=== PATIENT | female | born 1980 | race African-American/Black ===

== ENCOUNTER 2018-04-03 06:15 | Day surgery (SDC) | payer OTHER ==
[2018-04-03] MEDS ORDERED: Ringers Lactate 1,000 ML IV ONE (07:09)
[2018-04-03 07:10] LABS: Specific Gravity >= 1.030 (1.005-1.030)
[2018-04-03] MEDS ORDERED: PROPOFOL 200 MG/20 ML VIAL IV ONE (07:34)
[2018-04-03] MEDS ORDERED: MIDAZOLAM HCL 2 MG/2 ML INJ ONE (07:34)
[2018-04-03] MEDS ORDERED: LIDOCAINE 1% MPF 5 ML VIAL ONE (07:34)
--- NOTE | 2018-04-03 07:55 | ENDO RPT ---
[address], [address] EGD PROCEDURE REPORT EXAM DATE: 04/03/2018 PATIENT NAME: Caryn Garza MR#: [id number] BIRTHDATE: 1980 ATTENDING: Shawn Kruse Dr STATUS: outpatient LEAD MECHANICAL ENGINEER: Jany Navas RN and Eloian Mcintosh INDICATIONS: The patient is a 38 yr old Female here for an EGD due to mid epigastric abdominal pain, left upper quadrant abdominal pain, nausea, belching, heartburn, history of peptic ulcer disease, and iron deficiency anemia PROCEDURE PERFORMED: EGD with biopsy MEDICATIONS: Per Anesthesia. TOPICAL ANESTHETIC: none CONSENT: The patient understands the risks and benefits of the procedure and understands that these risks include, but are not limited to: sedation, allergic reaction, infection, perforation and/or bleeding. Alternative means of evaluation and treatment include, among others: physical exam, x-rays, and/or surgical intervention. The patient elects to proceed with this endoscopic procedure. DESCRIPTION OF PROCEDURE: During intra-op preparation period all mechanical medical equipment was checked for proper function. Hand hygiene and appropriate measures for infection prevention was taken. Procedure, possible complications, and alternatives including but not limited to the possibility of bleeding, perforation, tear, infection, sepsis, need for surgery, need for blood transfusion, and anesthesia related complications were explained to the patient. After the risks, benefits and alternatives of the procedure were thoroughly explained, Informed consent was verified, confirmed and timeout was successfully executed by the treatment team. The patient was placed in the left lateral position. The patient was anesthetized with topical anesthesia. Through the anesthetized oropharyngeal area, the scope was passed without any difficulty. The Pentax EG-2990i ([id number]) endoscope was introduced through the mouth and advanced to the third portion of the duodenum. Retroflexed views revealed a moderate sized hiatal hernia. The gastroscope was then slowly withdrawn and removed. A Schatzki's ring was found in the lower esophagus. A moderate sized hiatal hernia was found Mild gastritis was found in the antrum. Multiple biopsies were obtained and sent to pathology. Multiple erosions were found in the antrum. ADVERSE EVENTS: There were no complications. IMPRESSIONS: 1. A Schatzki's ring in the lower esophagus (no history of dysphagia) 2. A moderate sized hiatal hernia 3. Mild gastritis in the antrum, s/p biopsies 4. Multiple ( 7) erosions in the antrum RECOMMENDATIONS: 1. await biopsy results 2. acid suppression therapy REPEAT EXAM: Shawn Kruse Dr eSigned: Shawn Kruse Dr 04/03/2018 7:55 AM cc: Charbel Keating CPT CODES: ICD9 CODES: PATIENT NAME: Caryn Garza MR#: [id number]
--- NOTE | 2018-04-03 08:10 | ENDO RPT ---
[address], [address] EGD PROCEDURE REPORT EXAM DATE: 04/03/2018 PATIENT NAME: Caryn Garza MR#: [id number] BIRTHDATE: 1980 ATTENDING: Shawn Kruse Dr STATUS: outpatient BARGE LOADER: Jany Navas RN and Eloina Mcintosh INDICATIONS: The patient is a 38 yr old Female here for an EGD due to mid epigastric abdominal pain, left upper quadrant abdominal pain, nausea, belching, heartburn, history of peptic ulcer disease, and iron deficiency anemia PROCEDURE PERFORMED: EGD with biopsy MEDICATIONS: Per Anesthesia. TOPICAL ANESTHETIC: none CONSENT: The patient understands the risks and benefits of the procedure and understands that these risks include, but are not limited to: sedation, allergic reaction, infection, perforation and/or bleeding. Alternative means of evaluation and treatment include, among others: physical exam, x-rays, and/or surgical intervention. The patient elects to proceed with this endoscopic procedure. DESCRIPTION OF PROCEDURE: During intra-op preparation period all mechanical medical equipment was checked for proper function. Hand hygiene and appropriate measures for infection prevention was taken. Procedure, possible complications, and alternatives including but not limited to the possibility of bleeding, perforation, tear, infection, sepsis, need for surgery, need for blood transfusion, and anesthesia related complications were explained to the patient. After the risks, benefits and alternatives of the procedure were thoroughly explained, Informed consent was verified, confirmed and timeout was successfully executed by the treatment team. The patient was placed in the left lateral position. The patient was anesthetized with topical anesthesia. Through the anesthetized oropharyngeal area, the scope was passed without any difficulty. The Pentax EG-2990i ([id number]) endoscope was introduced through the mouth and advanced to the third portion of the duodenum. Retroflexed views revealed a moderate sized hiatal hernia. The gastroscope was then slowly withdrawn and removed. A Schatzki's ring was found in the lower esophagus. A moderate sized hiatal hernia was found Mild gastritis was found in the antrum. Multiple biopsies were obtained and sent to pathology. Multiple erosions were found in the antrum. Small bowel biopsies obtained with history of iron deficiency anemia. ADVERSE EVENTS: There were no complications. IMPRESSIONS: 1. A Schatzki's ring in the lower esophagus (no history of dysphagia) 2. A moderate sized hiatal hernia 3. Mild gastritis in the antrum, s/p biopsies 4. Multiple ( 7) erosions in the antrum 5. Small bowel biopsies obtained with history of iron deficiency anemia RECOMMENDATIONS: 1. await biopsy results 2. acid suppression therapy REPEAT EXAM: Shawn Kruse Dr eSigned: Shawn Kruse Dr 04/03/2018 8:09 AM Revised: 04/03/2018 8:09 AM cc: Charbel Keating CPT CODES: ICD9 CODES: PATIENT NAME: Caryn Garza MR#: [id number]
--- NOTE | 2018-04-03 08:20 | ENDO RPT ---
[address], [address] COLONOSCOPY PROCEDURE REPORT EXAM DATE: 04/03/2018 PATIENT NAME: Caryn Garza MR #: [id number] BIRTHDATE: 1980 ATTENDING: Shawn Kruse Dr STATUS: outpatient BRAID PATTERN SETTER: Eloina Mcintosh and Jany Navas RN INDICATIONS: The patient is a 38 yr old Female here for a colonoscopy due to iron deficiency anemia and RLQ/LLQ abdominal pain PROCEDURE PERFORMED: Colonoscopy MEDICATIONS: Per Anesthesia. ESTIMATED BLOOD LOSS: None CONSENT: The patient understands the risks and benefits of the procedure and understands that these risks include, but are not limited to: sedation, allergic reaction, infection, perforation and/or bleeding. Alternative means of evaluation and treatment include, among others: physical exam, x-rays, and/or surgical intervention. The patient elects to proceed with this endoscopic procedure. DESCRIPTION OF PROCEDURE: During intra-op preparation period all mechanical medical equipment was checked for proper function. Hand hygiene and appropriate measures for infection prevention was taken. Procedure, possible complications, alternatives including, but not limited to possibility of bleeding, perforation, tear, infection, sepsis, need for surgery, need for blood transfusion, were explained to the patient. After the risks, benefits and alternatives of the procedure were thoroughly explained, Informed consent was verified, confirmed and timeout was successfully executed by the treatment team. The patient was placed in the left lateral position. A digital rectal exam was performed and revealed no abnormalities of the rectum. After appropriate level of anesthesia, the scope was passed. The EG-2990i ([id number]) and EC-[id number] ([id number]) endoscope was introduced through the anus and advanced to the terminal ileum which was intubated for a short distance. The quality of the prep was good. The instrument was then slowly withdrawn as the colon was fully examined. Scope withdrawal time was 7 minutes. COLON FINDINGS: Small internal hemorrhoids were found. Retroflexed views revealed small hemorrhoids. The scope was then completely withdrawn from the patient and the procedure terminated. ADVERSE EVENTS: There were no complications. IMPRESSIONS: 1. Small internal hemorrhoids 2. Intubation to terminal ileum RECOMMENDATIONS: fiber rich diet RECALL: Return in 10 year(s) for Colonoscopy. Shawn Kruse Dr eSigned: Shawn Kruse Dr 04/03/2018 8:20 AM cc: Charbel Keating CPT CODES: ICD9 CODES: PATIENT NAME: Jim Garzaoinmelani Saleh MR#: [id number]
[2018-04-03 10:12] LABS: Urine Appearance CLEAR; Urine Bilirubin NEGATIVE (NEG); Urine Blood NEGATIVE (NEG); Urine Color DK YELLOW; Urine Glucose NEGATIVE (NEG); Urine Protein NEGATIVE (NEG); Urine Specific Gravity >=1.030 (1.005-1.030); Urine Urobilinogen 0.2 mg/dL (0.2-1.0)
[2018-04-03 10:13] LABS: Urine Microscopic Reflex NO UMIC
== END 2018-04-03 09:45 | disposition home or self-care (01) ==
LOC: OR 06:15
PROVIDERS: ATTEND Internal Medicine Gastroenterology
PROC: 0DB88ZX Excision of Small Intestine, Via Natural or Artificial Opening Endoscopic, Diagnostic (ICD-10-PCS; 2018-04-03)
PROC: 0DJD8ZZ Inspection of Lower Intestinal Tract, Via Natural or Artificial Opening Endoscopic (ICD-10-PCS; principal; 2018-04-03 07:30)
PROC: 0DB78ZX Excision of Stomach, Pylorus, Via Natural or Artificial Opening Endoscopic, Diagnostic (ICD-10-PCS; 2018-04-03 07:30)
DX: K21.0 Gastro-esophageal reflux disease with esophagitis (principal); K59.00 Constipation, unspecified; E66.9 Obesity, unspecified; Z68.41 Body mass index [BMI] 40.0-44.9, adult; D50.9 Iron deficiency anemia, unspecified; K64.8 Other hemorrhoids; K22.2 Esophageal obstruction; K44.9 Diaphragmatic hernia without obstruction or gangrene
CPT/HCPCS: 81003; 81025; 88305; 88312; J2250

== ENCOUNTER 2018-06-08 05:23 | Emergency (ER) | payer OTHER ==
--- NOTE | 2018-06-08 07:15 | ER ---
Nurse's Notes [facility] Name: Caryn Garza Age: 38 yrs Sex: Female : 1980 Arrival Date: 06/08/2018 Time: 05: Bed 18 Private MD: Charbel Keating Diagnosis: Acute upper respiratory infection, unspecified Presentation: 06/08 05:36 Presenting complaint: Patient states: Pt reports she has been congested and having a ea sore throat since Sunday. Pt reports symptoms have been getting worse since. Reports she has been taking amoxicillin. Transition of care: patient was not received from another setting of care. Onset of symptoms was June 08, 2018. Risk Assessment: Do you want to hurt yourself or someone else? Patient reports no desire to harm self or others. Initial Sepsis Screen: Does the patient meet any 2 criteria? No. Patient's initial sepsis screen is negative. Does the patient have a suspected source of infection? No. Patient's initial sepsis screen is negative. Care prior to arrival: None. 05:36 Method Of Arrival: Ambulatory ea 05:36 Acuity: RITA 4 ea Triage Assessment: 05:43 General: Appears uncomfortable, Behavior is calm, cooperative, appropriate for age. ea Pain: Complains of pain in forehead, right eye, right cheek, nose, left cheek and left eye Pain currently is 8 out of 10 on a pain scale. Quality of pain is described as pressure. EENT: Nares are clear with drainage noted bilaterally pt reports nasal congestion . Neuro: Level of Consciousness is awake, alert, obeys commands, Oriented to person, place, time, situation. Cardiovascular: Heart tones S1 S2 present Patient's skin is warm and dry. Respiratory: Airway is patent Respiratory effort is even, unlabored, Respiratory pattern is regular, symmetrical, Breath sounds with crackles in right posterior middle lobe. Respiratory: Parent/caregiver reports the patient having cough that is productive, hacking. GI: Abdomen is non-distended, Bowel sounds present X 4 quads. Derm: Skin is pink, warm \T\ dry. 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 - Social history:: Smoking status: Patient/guardian denies using tobacco. - Ebola Screening: : No symptoms or risks identified at this time. Screenin:42 Abuse screen: Denies threats or abuse. Nutritional screening: No deficits noted. ea Tuberculosis screening: No symptoms or risk factors identified. Fall Risk None identified. Assessment: 06:52 Reassessment: Patient and/or family updated on plan of care and expected duration. Pain ea level reassessed. Patient is alert, oriented x 3, equal unlabored respirations, skin warm/dry/pink. 07:00 Reassessment: RECD REPORT FROM PAULY CROWLEY. 38YO BF P/W NASAL CONGESTION, COUGH/COLD S/S. bp VS STABLE, AFEBRILE. 07:00 Cardiovascular: Rhythm is sinus rhythm. Cardiovascular: Capillary refill < 3 seconds bp Patient's skin is warm and dry. Respiratory: Reports cough that is Airway is patent Respiratory effort is even, unlabored, Respiratory pattern is regular, symmetrical. Respiratory: Breath sounds are clear bilaterally. 07:49 Reassessment: PT D/C HOME AMBULATORY, DX WITH ACUTE URI. bp Vital Signs: 05:39 BP 140 / 79; Pulse 97; Resp 20; Temp 98.4(O); Pulse Ox 100% on R/A; Weight 114.76 kg; ea Height 5 ft. 5 in. (165.10 cm); Pain 7/10; 07:15 BP 136 / 80; Pulse 80; Resp 16; Pulse Ox 99% ; bp 05:39 Body Mass Index 42.10 (114.76 kg, 165.10 cm) ea ED Course: 05:27 Patient arrived in ED. am2 05:27 Charbel Keating DO is Private Physician. am2 05:39 Triage completed. ea 05:42 Patient has correct armband on for positive identification. Bed in low position. Call ea light in reach. 05:42 Arm band placed on right wrist. Patient placed in an exam room, on a stretcher, on ea pulse oximetry. 05:54 Sundar Zurita MD is Attending Physician. gs 06:59 Lincoln Perez, KEO is Primary Nurse. bp 07:49 No provider procedures requiring assistance completed. Patient did not have IV access bp during this emergency room visit. Administered Medications: No medications were administered Outcome: 07:14 Discharge ordered by . alexsandra 07:50 Discharged to home ambulatory. bp 07:50 Condition: stable 07:50 Discharge instructions given to patient, Instructed on discharge instructions, follow up and referral plans. medication usage, Demonstrated understanding of instructions, follow-up care, medications, Prescriptions given X 3. 07:50 Patient left the ED. bp Signatures: Mackenzie Hernandez am2 Pauly Young RN RN Sundar Ford MD MD gs Peltier, Brian RN RN bp
--- NOTE | 2018-06-08 07:15 | EDPHYS ---
Physician Documentation [facility] Name: Caryn Garza Age: 38 yrs Sex: Female : 1980 Arrival Date: 06/08/2018 Time: 05:27 Bed 18 Private MD: Charbel Keaitng ED Physician Sundar Zurita HPI: 06/08 07:02 This 38 yrs old Black Female presents to ER via Ambulatory with complaints of gs Congestion. 07:02 Onset: The symptoms/episode began/occurred gradually. Severity of symptoms: At their gs worst the symptoms were moderate, in the emergency department the symptoms are unchanged. Modifying factors: The symptoms are alleviated by the symptoms are aggravated by cold weather. Associated signs and symptoms: Pertinent negatives: fever. The patient has experienced similar episodes in the past, several times. 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 - Social history:: Smoking status: Patient/guardian denies using tobacco. - Ebola Screening: : No symptoms or risks identified at this time. ROS: 07:02 All other systems are negative. gs Exam: 07:02 Head/Face: Normocephalic, atraumatic. Eyes: Pupils equal round and reactive to light, gs extra-ocular motions intact. Lids and lashes normal. Conjunctiva and sclera are non-icteric and not injected. Cornea within normal limits. Periorbital areas with no swelling, redness, or edema. Neck: Trachea midline, no thyromegaly or masses palpated, and no cervical lymphadenopathy. Supple, full range of motion without nuchal rigidity, or vertebral point tenderness. No Meningismus. Chest/axilla: Normal chest wall appearance and motion. Nontender with no deformity. No lesions are appreciated. Cardiovascular: Regular rate and rhythm with a normal S1 and S2. No gallops, murmurs, or rubs. Normal PMI, no JVD. No pulse deficits. Respiratory: Lungs have equal breath sounds bilaterally, clear to auscultation and percussion. No rales, rhonchi or wheezes noted. No increased work of breathing, no retractions or nasal flaring. Abdomen/GI: Soft, non-tender, with normal bowel sounds. No distension or tympany. No guarding or rebound. No evidence of tenderness throughout. Back: No spinal tenderness. No costovertebral tenderness. Full range of motion. Skin: Warm, dry with normal turgor. Normal color with no rashes, no lesions, and no evidence of cellulitis. MS/ Extremity: Pulses equal, no cyanosis. Neurovascular intact. Full, normal range of motion. Neuro: Awake and alert, GCS 15, oriented to person, place, time, and situation. Cranial nerves II-XII grossly intact. Motor strength 5/5 in all extremities. Sensory grossly intact. Cerebellar exam normal. Normal gait. 07:02 Constitutional: The patient appears alert, awake. 07:02 ENT: TM's: are normal, Nose: Nasal mucosa: edematous, nasal drainage, and is seen coming from both nares, that is thick, Posterior pharynx: is normal. Vital Signs: 05:39 BP 140 / 79; Pulse 97; Resp 20; Temp 98.4(O); Pulse Ox 100% on R/A; Weight 114.76 kg; ea Height 5 ft. 5 in. (165.10 cm); Pain 7/10; 07:15 BP 136 / 80; Pulse 80; Resp 16; Pulse Ox 99% ; bp 05:39 Body Mass Index 42.10 (114.76 kg, 165.10 cm) ea MDM: 06:26 Patient medically screened. 07:02 Differential Diagnosis: Bronchitis Upper Respiratory Infection. Data reviewed: vital gs signs, nurses notes. 07:13 Counseling: I had a detailed discussion with the patient and/or guardian regarding: the historical points, exam findings, and any diagnostic results supporting the discharge/admit diagnosis, the presence of at least one elevated blood pressure reading (>120/80) during this emergency department visit, the need for outpatient follow up. Special discussion: I have referred the patient to see his PCP for further evaluation of high blood pressure. Administered Medications: No medications were administered Disposition: 06/08/18 07:14 Discharged to Home. Impression: Acute upper respiratory infection, unspecified. - Condition is Stable. - Discharge Instructions: Upper Respiratory Infection, Adult, Managing Your Hypertension. - Prescriptions for Flonase Allergy Relief 50 mcg/actuation Nasal spray,suspension - inhale 2 spray by INTRANASAL route once daily; 1 bottle. Prednisone 20 mg Oral Tablet - take 1 tablet by ORAL route once daily for 5 days; 5 tablet. Zyrtec 10 mg Oral Tablet - take 1 tablet by ORAL route once daily As needed; 20 tablet. - Medication Reconciliation Form, Thank You Letter, Antibiotic Education, Prescription Opioid Use form. - Follow up: Private Physician; When: 2 - 3 days; Reason: Re-evaluation by your physician. Signatures: Pauly Young RN RN Sundar Ford MD MD gs Peltier, Brian, RN RN bp Corrections: (The following items were deleted from the chart) 07:50 07:14 06/08/2018 07:14 Discharged to Home. Impression: Acute upper respiratory bp infection, unspecified. Condition is Stable. Forms are Medication Reconciliation Form, Thank You Letter, Antibiotic Education, Prescription Opioid Use. Follow up: Private Physician; When: 2 - 3 days; Reason: Re-evaluation by your physician.
== END 2018-06-08 07:50 | disposition home or self-care (01) ==
LOC: ER 05:23
DX: J06.9 Acute upper respiratory infection, unspecified (principal); Z91.048 Other nonmedicinal substance allergy status
CPT/HCPCS: 99284